=== PATIENT | male | born 1975 | race Caucasian/White ===

== ENCOUNTER 2018-11-20 17:57 | Emergency (ER) | payer OTHER, MEDICAID, SELFPAY ==
[2018-11-20 18:02] VITALS: BP 164/93; PULSE 74; RESP 14; TEMP 36.3; O2SAT 99
--- NOTE | 2018-11-20 18:10 | ED.GENADUL_ITS ---
Discharge Plan Disposition Patient Disposition: HOME Condition: Good Discharge Details Chief Complaint: Dizzy/Sync Clinical Impression: Vertigo Primary Care Provider: Kings Padilla ED Provider: Avery Valdivia Home Meds and New Rx's Prescriptions: New meclizine 25 mg tablet 25 mg PO TID Qty: 20 RF: 0 loratadine 10 mg capsule 10 mg PO DAILY Qty: 14 RF: 0 No Action garlic [garlic oil] 1,000 MG capsule 1,000 mg PO DAILY RF: 0 Centrum Complete 1 EACH tablet 1 tab-cap PO DAILY RF: 0 fluticasone propionate 16 GM spray,suspension 50 mcg NS DAILY RF: 0 dicyclomine 10 mg capsule 10 mg PO BID 30 Days Qty: 60 RF: 5 cholecalciferol (vitamin D3) [Vitamin D3] 400 unit Capsule 800 unit PO DAILY RF: 0 Discharge Instructions Instructions: Vertigo (ED) Additional Instructions: Please take medication as directed. Please drink 10-12 cups of water per day if you notice any worsening of your symptoms, or any new symptoms such as vomiting, diarrhea, fever, chills, shortness of breath, chest pain, numbness, weakness, or fainting , please return immediately to the emergency department for reevaluation. Please follow up with your primary care provider as soon as possible for reassessment and reevaluation. As always, it was a pleasure participating in your medical care today. . Referrals: Kings Padilla, [Primary Care Provider] - Medical Decision Making This is a pleasant 43-year-old male who presents for dizziness. Earlier he flushed his left ear with a notable amount of cold water which sent him into a notable episode of dizziness and vertigo. Symptoms have continued since then. He is able to walk and ambulate well. Physical exam demonstrates no signs of a cerebellar stroke, as his physical exam is inconsistent with this. He does have notable horizontal nystagmus, and a positive test of skew. His clinical history is also certainly remarkable for a peripheral vertigo with his injection of cold water into his left ear. Patient will be given meclizine and loratadine. I have extensively reviewed the treatment plan and discharge instructions with the patient. I have addressed all patient concerns at this time. The patient was made aware of what symptoms to monitor for that would warrant a return to the emergency department. Discussed the plan with the patient, they demonstrate verbal understanding and agreement with our assessment and plan at this time. HPI General Date/Time Provider Initiated Documentation: 11/20/18 18:04 . HPI Narrative: This is a 43-year-old male with no significant past medical history who presents today for evaluation of dizziness. Patient states he had some fullness in his left ear, he flushed it with cold water, and immediately had notable dizziness and lightheadedness. Symptoms have continued, and so he came to the ER for further evaluation. He denies any headache, syncope, chest pain, shortness of breath, numbness tingling or weakness. He denies any fever chills. He denies any other complaints. Symptoms are made worse with moving of his head. Improved by nothing. He denies any tinnitus. Related Data Home Medications Medication Instructions Recorded Confirmed garlic [Garlic Oil] 1,000 mg PO DAILY 04/10/14 11/20/18 cvapenxlpibp-bgxm-ikdhe acid 1 tab-cap PO DAILY tab-cap 04/10/14 11/20/18 [Centrum Complete Multivit Tab] fluticasone propionate 50 mcg NS DAILY spray 05/21/17 11/20/18 dicyclomine 10 mg PO BID 30 Days #60 tab-cap 08/22/18 11/20/18 cholecalciferol (vitamin D3) 800 unit PO DAILY 11/20/18 11/20/18 [Vitamin D3] loratadine 10 mg PO DAILY #14 cap 11/20/18 meclizine 25 mg PO TID #20 tab 11/20/18 Previous Rx's Medication Instructions Recorded dicyclomine 10 mg PO BID 30 Days #60 tab-cap 08/22/18 loratadine 10 mg PO DAILY #14 cap 11/20/18 meclizine 25 mg PO TID #20 tab 11/20/18 Allergies Allergy/AdvReac Type Severity Reaction Status Date / Time tomato AdvReac Mild Face Unverified 11/20/18 18:06 Flushing, GI Intolerance General Stated Complaint: Dizzy/Sync JARET: 3 Review of Systems Review of Systems All systems reviewed & are unremarkable except as noted in HPI and below PFSH Surgical History Open Carpal Tunnel release Synovectomy Family History Mother No problems noted. Father No problems noted. Sister No problems noted. Brother No problems noted. Grandfather Neoplasm Grandfather Neoplasm Grandmother No problems noted. Grandmother Neoplasm Social History Smoking/Tobacco Use Status: Never Drug use: Never Do you feel safe at home: Yes Do you feel safe in your relationship?: Yes Exam Narrative Exam Narrative: 1.Const: Well-nourished, Well-developed, appearing stated age 2.Eyes: PERRL, no conjunctival injection, and symmetrical lids. Cerebellar function testing is normal. The patient demonstrates a normal hints exam with no findings concerning for a central event. No vertical nystagmus. Notable hori zontal nystagmus. the head impulse test is negative for any significant central abnormality but was notably positive for peripheral component. Normal test of skew. No suggestion of a central cerebellar event. 3.ENT: Atraumatic external nose and ears. Moist MM. Neck: Symmetric, trachea midline, No thyromegaly. No evidence of otitis media. Small amount of serous fluid behind the left tympanic membrane. 4.CVS: +S1/S2, No murmurs or gallops. Peripheral pulses 2+ and equal in all extremities. Brisk capillary refill in all extremities. 5.RESP: Unlabored respiratory effort. Clear to auscultation bilaterally. No wheezes rales or rhonchi 6.GI: Soft, Nontender/Nondistended, No hepatosplenomegaly. No guarding or rebound. 7.MSK: Normocephalic/Atraumatic, Extremities w/o deformity or ttp No cyanosis or clubbing, Normal movement of all extremities 8.Skin: Warm, Dry. No rashes or lesions. 9.Neuro: cable assembler and swager II-XII grossly intact. Sensation grossly intact, no focal neurologic deficits. All 6 cardinal planes of vision are fully intact. No evidence of rotatory or vertical nystagmus. The patient demonstrated a normal budcgo-ewop-avluno, good dexterity. There was no evidence of dysdiadochokinesia. Patient was able to ambulate without difficulty. There was no wide-based gait. Romberg, and gnyi-fi-eimi are both normal on testing. Sensation was intact bilaterally as well as muscle strength bilaterally for all extremities. Patient was able to verbalize butter cup with no slurring, or miss pronunciation. 10.Psych: (AAO) x3. Appropriate mood and affect Course Vital Signs Temperature 36.3 C L 11/20/18 18:02 Pulse 74 11/20/18 18:02 Respiratory Rate 14 11/20/18 18:02 Blood Pressure 164/93 H 11/20/18 18:02 Pulse Oximetry 99 11/20/18 18:02 Temperature 36.3 C L 11/20/18 18:02 Pulse 74 11/20/18 18:02 Respiratory Rate 14 11/20/18 18:02 Respiratory Effort Non-Labored 11/20/18 18:05 Blood Pressure 164/93 H 11/20/18 18:02 Blood Pressure Position Sitting 11/20/18 18:02 Pulse Oximetry 99 11/20/18 18:02 Oxygen Delivery Method Room Air 11/20/18 18:02 Oxygen Flow Rate 0 11/20/18 18:02 Pain Level 0 11/20/18 18:02
[2018-11-20 18:11] VITALS: RESP 16
[2018-11-20] MEDS: Loratidine 10 MG TAB (18:20)
[2018-11-20] MEDS: Meclizine 25 MG TAB (18:21)
== END 2018-11-20 18:21 | disposition home or self-care (01) ==
LOC: ER 18:11
PROVIDERS: Emergency Provider Student in an Organized Health Care Education/Training Program; PCP Emergency Medicine
DX: R42 Dizziness and giddiness (principal)
CPT/HCPCS: 99283

== ENCOUNTER 2019-03-16 07:46 | Outpatient (CLI) | payer MEDICAID, SELFPAY ==
[2019-03-16 09:26] LABS: ALT 32 U/L (12-78); AST 16 U/L (15-37); Albumin 4.2 g/dL (3.4-5.0); Alkaline Phosphatase 107 U/L (46-116); Bilirubin, Direct 0.11 mg/dL (0.00-0.20); Bilirubin, Total 0.5 mg/dL (0.2-1.0); Total Protein 7.8 g/dL (6.4-8.2)
[2019-03-16 09:28] LABS: Hemoglobin A1C 5.8 % (4.5-6.2)
== END 2019-03-16 08:06 ==
PROVIDERS: PCP Emergency Medicine; Visit Provider Emergency Medicine
DX: E66.9 Obesity, unspecified (principal)
CPT/HCPCS: 36415; 80076; 83036

== ENCOUNTER 2019-09-10 08:03 | Emergency (ER) | payer MEDICAID, SELFPAY ==
[2019-09-10] MEDS: Normal Saline 1,000 ML 2000 ML IV (08:03)
[2019-09-10 08:06] VITALS: PULSE 140; RESP 37
[2019-09-10] MEDS: EPINEPHrine 1 MG/10 ML SYR IVP ×7 (08:06→08:38)
[2019-09-10] MEDS: Sodium Bicarbonate 50 MEQ/50 ML SYR IVP ×2 (08:09→08:19)
[2019-09-10 08:10] VITALS: PULSE 140; RESP 40
[2019-09-10 08:20] VITALS: PULSE 0
[2019-09-10] MEDS: Calcium Gluconate 4.65 MEQ/10 ML VIAL 4.65 MG ×2 (08:28→08:41)
[2019-09-10] MEDS: Calcium Chloride 1000 MG/10 ML SYR IVP (08:28)
[2019-09-10 08:30] VITALS: RESP 45
[2019-09-10] MEDS: Tenecteplase 50 MG KIT IVP (08:35)
[2019-09-10 08:40] VITALS: RESP 33; O2SAT 95
[2019-09-10 08:50] VITALS: PULSE 0; RESP 9
--- NOTE | 2019-09-10 08:51 | ED.GENADUL_ITS ---
Discharge Plan Disposition Patient Disposition: Discharge Details Chief Complaint: CodeBlue Clinical Impression: Asystole Primary Care Provider: Kings Padilla ED Provider: Carroll Barth Medical Decision Making 44-year-old male brought to the ER in the car by his . They live close to the hospital on [facility]. The patient's states that he developed chest pain approximately 730 at home after snowblowing. They got in the car and approximately residential to the hospital the patient collapsed. In the ER parking lot, he was found in the car unresponsive by nurses, brought into the resuscitation bay, found to be pulseless and in asystolic arrest. The patient's stated to me that he has recently been well. She states he complained of chest pain once or twice over a few years, but no recent complaints of illness. ACLS was initiated with CPR, patient was placed on a monitor car operator, IV access was established. The patient was intubated by Dr. Castle. The patient was given a fluid bolus, he received a total of 7 mg of epinephrine in individual pushes, 2 amps of bicarb, 2 amps of calcium gluconate. Serial cardiac ultrasounds at the bedside revealed no cardiac activity. There was no evidence of tamponade. At no time was there any cardiac rhythm other than asystole. After approximately 30 minutes of resuscitative efforts, I discussed with the patient's that I felt a last ditch effort would be to empirically try tenecteplase as thrombolytic therapy for presumed massive TN. She consented and the medication was administered. An epinephrine drip was started as a last ditch effort as well. After 50 minutes of sustained ACLS and resuscitation efforts, there was persistent lack of pulse, no corneal reflex, no further agonal breaths. With no evidence of signs of life, I pronounced the patient at 8:49am. The medical secretary's office was contacted. Patient was seen by the ME's office, they will sign a certificate. The body is to be released to the family. cc: Dr Padilla [facility] General Date/Time Provider Initiated Documentation: 09/10/19 08:35 . Limitations to Documentation: other (Unresponsive and asystolic) . Information obtained by: family . History of Present Illness 44 year old M presents to the emergency department with the chief complaint of Chest pain at home, unresponsive in vehicle, described as severe, and is localized to the chest. Related Data Home Medications Medication Instructions Recorded Confirmed garlic [Garlic Oil] 1,000 mg PO DAILY 04/10/14 07/10/19 iirsjhtrbqbh-esqj-fcdmy acid 1 tab-cap PO DAILY tab-cap 04/10/14 07/10/19 [Centrum Complete Multivit Tab] fluticasone propionate 50 mcg NS DAILY spray 05/21/17 07/10/19 cholecalciferol (vitamin D3) 800 unit PO DAILY 11/20/18 07/10/19 [Vitamin D3] dicyclomine 10 mg capsule 10 mg PO BID tab-cap 02/14/19 07/10/19 loratadine 10 mg capsule 10 mg PO DAILY cap 02/14/19 07/10/19 terbinafine HCl 250 mg tablet 250 mg PO DAILY #28 tab 02/14/19 07/10/19 terbinafine HCl 250 mg tablet 250 mg PO DAILY #30 tab 02/14/19 07/10/19 Previous Rx's Medication Instructions Recorded terbinafine HCl 250 mg tablet 250 mg PO DAILY #28 tab 02/14/19 terbinafine HCl 250 mg tablet 250 mg PO DAILY #30 tab 02/14/19 Allergies Allergy/AdvReac Type Severity Reaction Status Date / Time tomato AdvReac Mild Face Verified 07/10/19 10:35 Flushing, GI Intolerance General JARET: 3 Review of Systems Unobtainable due to (Unobtainable due to critical condition) PFSH Surgical History (Updated 02/10/19 @ 10:01 by Arian Courtney) Open Carpal Tunnel release 09/18/15;[facility]; RIGHT 12/04/15; [facility];LEFT Synovectomy 09/18/15;[facility];RIGHT Family History Mother No problems noted. Father No problems noted. Sister No problems noted. Brother No problems noted. Maternal Grandfather , 60 Lung cancer Throat cancer Paternal Grandfather , 80s Lung cancer Maternal Grandmother No problems noted. Paternal Grandmother Brain cancer Social History (Updated 03/24/19 @ 08:15 by Helder Gallego) Smoking/Tobacco Use Status: Never Second Hand Exposure: Yes Alcohol Intake: current Alcohol Intake frequency: 0-2 drinks per day Alcohol type: beer Drug use: Never Substance use type: does not use Caregiver/Support person: No Household members: spouse and children Housing: house Communication Needs: None Do you need help understanding health information?: Never Pets and animals: No Sexually active: Yes Do you think of yourself as: straight/heterosexual Current gender identity: male How often do you talk on the phone with friends or family?: three or more times per week How often do you get together with friends or relatives?: three or more times per week How often do you attend cheondoism or advent services?: 4 or more times per year Do you belong to any clubs or organized social groups?: yes Panel score (0-1 are the most socially isolated patients): 3 What type of physical activity do you participate in: walking Duration: < 15 minutes/day Frequency: 3-4 times per week Marina/Voodoo: Mormon Special marina needs: No Seatbelt use: always Helmet use: Yes Helmet use: always Drive intox 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 EXT: Pale and cool Neuro: No corneal reflex, pupils fixed Psych: Unable to assess Procedures Intubation Time out performed: Yes Laryngoscope: Rocío ET Tube Size: 8 ET Tube Uncuffed: Yes Tube Placement Confirmation: visualized tube passing through cords and equal breath sounds bilaterally Patient Tolerated Procedure: no complications Critical Care Time Critical Care Time Critical Care Time: Yes Total Critical Care Time: 50 Attestation: Bedside supervision of ancillary providers including CPR, ministration of medications, discussion with family.
[2019-09-10] MEDS: Normal Saline Flush 10 ML SYR IVP (09:48)
== END 2019-09-10 10:45 | disposition expired ==
PROVIDERS: Emergency Provider Emergency Medicine; PCP Emergency Medicine
DX: I46.9 Cardiac arrest, cause unspecified (principal)
CPT/HCPCS: 31500; 92950; 96374; 96375; 96376; 99291; J0171; J0610; J3101